=== PATIENT | male | born 1940 | race Caucasian/White ===

== ENCOUNTER 2021-08-28 15:55 | Day surgery (SDC) | payer MEDICARE ==
[~2021-08-28] VITALS: Ht 182.9 cm; Wt 72.0 kg
[2021-08-28] VITALS (9 sets, daily range): BP systolic 130–160; BP diastolic 73–110; PULSE 47–81; TEMP 97.3–98.1
[~2021-08-28 15:55] MED LIST: AQUAPHOR1 OI1 TP; ATARAX 25MG25 MG/TAB PO; HYTRIN 5MG C5 MG/CAP PO; LASIX 40MG TABL40 MG PO; VIAGRA100 MG PO; ZOCOR 40MG40 MG PO
[2021-08-28] MEDS ORDERED: PRILOSEC 20MG20 MG PO (16:27)
[2021-08-28] MEDS ORDERED: LANOXIN 0.120.125 MG PO (16:27)
[2021-08-28] MEDS ORDERED: PRINZIDE 12.5 M1 TA1 PO (16:27)
[2021-08-28] MEDS ORDERED: FLOMAX 0.40.4 MG/CAP PO (16:28)
[2021-08-28] MEDS ORDERED: TOPROL XL100 MG PO (16:28)
[2021-08-28] MEDS ORDERED: LIPITOR 40MG TA40 MG PO (16:28)
[2021-08-28] MEDS ORDERED: CARDIZEM CD 18180 MG PO (16:28)
[2021-08-28] MEDS ORDERED: ELIQUIS 5MG PO (16:29)
[2021-08-28 16:35] LABS: TRICYCLIC ANTIDEPRESS URINE NEGATIVE
--- NOTE | 2021-08-28 17:07 | NUR ---
PATIENT'S SON TOOK PERSONAL BELONGINGS TO VEHICLE. PATIENT'S DENTURES STILL AT BEDSIDE.
[2021-08-28] MEDS ORDERED: PYRIDIUM 100MG100 MG PO (19:01)
[2021-08-29] VITALS (7 sets, daily range): BP systolic 86–125; BP diastolic 51–90; PULSE 55–94; TEMP 97.3–97.8
--- NOTE | 2021-08-29 07:05 | NUR ---
PT RESTING IN BED. SLEEPING THROUGH REPORT FROM DANY NGUYEN. CBI RUNNING 3000 CR.
--- NOTE | 2021-08-29 08:52 | NUR ---
PT RESTING IN BED, EATING AND DRINKING WELL. CBI RUNNING SLOW WITH CLEAR LIGHT YELLOW FLUID IN ESTRADA BAG TO DD. LUNGS COARSE, BOWEL SOUNDS PRESENT.
--- NOTE | 2021-08-29 08:58 | NUR ---
PRIME AND PULL CATHETER, BEGIN 6 BTTL.
--- NOTE | 2021-08-29 09:39 | NUR ---
casting house worker met with patient at bedside to discuss discharge planning. Patient lives at home with a friend named Michelle, but could not remember Michelle's phone number. Patient reports that he is independent with all of his ADL's and utilizes a wheelchair at home to assist with mobility. Patient have no oxygen needs at home. PCP is Nigel Joseph and he utilizes [facility] in [place] for medication with no cost difficulties. Patient is not and Nigel ([phone]) is his only child. Education provided and patient expresses his understanding of [facility] being his legal NOK and does not wish to establish a formal DPOA-HC at this time. Patient is planning on returning home once medically ready. Discharge plan: Home with son
--- NOTE | 2021-08-29 10:40 | NUR ---
Initial visit; Patient thanked Sign Out Clerk for looking in on him, visiting and Keeping him in Sign Out Clerk's prayers.
--- NOTE | 2021-08-29 15:55 | NUR ---
CALLED [facility]OUGH AND DR. BLANC LEFT UPDATE VOICE MAIL ON PT STATUS.
--- NOTE | 2021-08-29 16:27 | NUR ---
NEW ORDER RECIEVED AND PROCESSED. HOSPITALIST CONSULT COMPLETE. NOTIFIED [facility] FOR HOSPITALIST.
--- NOTE | 2021-08-29 16:38 | NUR ---
BLADDER SCANED PT AND FOUND 211 MLS IN BLADDER. PT VOIDED 30 MLS BLOODY URINE. PT REPORTS NO NEED TO VOID FELT.
--- NOTE | 2021-08-29 16:50 | NUR ---
AND HOSPITALIST IN TO SEE PT AT THIS TIME.
[2021-08-29 17:19] LABS: BASO % 0.1 % (0.0-2.0); GRAN # 13.4 K/mm3 (1.4-6.5); GRAN % 87.7 % (42.2-75.2); HEMATOCRIT 38.2 % (42.0-52.0); HEMOGLOBIN 12.6 g/dl (13.5-18.0); LYMPH # 0.9 K/mm3 (1.2-3.4); LYMPH % 5.8 % (20.0-51.0); MEAN CELL VOLUME 92 fl (80.0-100.0); MEAN CORPUSCULAR HEMOGLOBIN 30 pg (27-31); MEAN CORPUSCULAR HGB CONC 33 g/dl (33.0-37.0); MEAN PLATELET VOLUME 9.9 fl (7.4-10.4); MONO # 0.9 K/mm3 (0.1-0.6); MONO % 5.6 % (1.7-9.3); PLATELET COUNT 254 K/mm3 (130-400); RED BLOOD COUNT 4.16 M/mm3 (4.20-5.60); REDCELL DISTRIBUTION WIDTH-CV 13.7 % (11.5-14.5)
[2021-08-29 17:34] LABS: ALBUMIN 2.8 gm/dL (3.4-4.8); BILIRUBIN,TOTAL 0.7 mg/dL (0.2-1.2); CALCIUM 7.9 mg/dL (8.4-10.2); CREATININE, serum 1.61 mg/dL (0.72-1.25); POTASSIUM 4.3 mmol/L (3.5-4.5); TOTAL PROTEIN 5.8 gm/dL (6.2-8.1)
--- NOTE | 2021-08-29 18:27 | NUR ---
pt resting in bed. Iv topump per orders.
--- NOTE | 2021-08-29 20:15 | NUR ---
PT ATTEMPTED TO VOID. UNABLE TO. BLADDER SCANNED WITH 242 RESIDUAL. PT IS NOT UNCOMFORTABLE. ENC TO DRINK MORE H20.
--- NOTE | 2021-08-29 21:44 | NUR ---
PT STILL HAS NO URGE TO VOID. AGAIN ENC PO FLUIDS.
--- NOTE | 2021-08-29 22:25 | NUR ---
PT NOT DRINKING WELL. NOTIFIED JOLENE AREVALO RE: NO UO SINCE 1699 BLADDER SCAN AND PT NOT DRINKING. SEE NEW ORDER FOR IV BOLUS.
--- NOTE | 2021-08-29 22:30 | NUR ---
STARTED NS 1000CC BOLUS.
--- NOTE | 2021-08-29 23:10 | NUR ---
ATTEMPTED TO VOID. UNABLE TO AT THIS TIME. BOLUS NS STILL INFUSING.
--- NOTE | 2021-08-30 01:43 | NUR ---
PT STILL UNABLE TO VOID. BLADDER SCAN READ 363. PT NOT UNCOMFORTABLE. PT AGITATED. HE WANTS TO WAIT TIL MORNING TO DO ANYMORE. WANTS TO BE LEFT ALONE. EXPLAINED RATIONALE. STILL ADAMENT ABOUT BEING LEFT ALONE.
--- NOTE | 2021-08-30 02:46 | NUR ---
VOIDED 40CC OF VERY DARK USHA URINE. NO BLOOD CLOTS.
[2021-08-30 03:19] VITALS: BP 111/50; PULSE 115; TEMP 97.6
--- NOTE | 2021-08-30 04:45 | NUR ---
NOTIFIED BY TELEMETRY THAT PT WAS HAVING 3 SECOND PAUSES. NOTIFIED RT FOR EKG.
--- NOTE | 2021-08-30 05:15 | NUR ---
NOTIFIED DR HERNANDEZ OF 3 SECOND PAUSES ON TELEMETRY. EKG OBTAINED. CONTINUE TO WATCH.
--- NOTE | 2021-08-30 05:23 | NUR ---
NOTIFIED DR JONES REGARDING URINARY RETENTION. SEE ORDER.
--- NOTE | 2021-08-30 05:27 | NUR ---
PLACED 18FR FOELY WITH IMMEDIATE RETURN OF DARK USHA SL DILUTED URINE. NO BLOOD CLOTS.
[2021-08-30 06:33] LABS: BASO % 0.2 % (0.0-2.0); GRAN % 88.7 % (42.2-75.2); HEMOGLOBIN 11.9 g/dl (13.5-18.0); LYMPH # 0.8 K/mm3 (1.2-3.4); LYMPH % 4.2 % (20.0-51.0); MEAN CELL VOLUME 92 fl (80.0-100.0); MEAN CORPUSCULAR HEMOGLOBIN 30 pg (27-31); MEAN CORPUSCULAR HGB CONC 33 g/dl (33.0-37.0); MEAN PLATELET VOLUME 10.4 fl (7.4-10.4); MONO # 1.1 K/mm3 (0.1-0.6); MONO % 5.5 % (1.7-9.3); PLATELET COUNT 261 K/mm3 (130-400); RED BLOOD COUNT 3.93 M/mm3 (4.20-5.60); REDCELL DISTRIBUTION WIDTH-CV 13.7 % (11.5-14.5)
--- NOTE | 2021-08-30 06:38 | NUR ---
PT RESTING AT THHIS TIME. TOTAL UO IS 600CC SINCE ESTRADA INSERTED.
[2021-08-30 06:50] LABS: CALCIUM 7.6 mg/dL (8.4-10.2); CREATININE, serum 1.4 mg/dL (0.72-1.25); POTASSIUM 4.2 mmol/L (3.5-4.5)
[2021-08-30 07:41] VITALS: BP 136/82; PULSE 64; TEMP 97.2
--- NOTE | 2021-08-30 09:22 | NUR ---
Follow-up visit; Patient thanked for stopping and stated he is doing well.
[2021-08-30 11:15] VITALS: BP 112/69; PULSE 81; TEMP 97.6
--- NOTE | 2021-08-30 11:15 | NUR ---
PATIENT'S IV SITE GOT CAUGHT ON BEDSHEETS AND PULLED. PATIENT DOES HAVE ORDERS FOR DISCHARGE LATER TODAY, SO RN TOOK IV OUT. PRESSURE DRESSING PLACED ON SITE. IV REMOVED, INTACT.
[2021-08-30 11:44] VITALS: BP 112/69; PULSE 81; TEMP 97.6
--- NOTE | 2021-08-30 13:19 | NUR ---
PATIENT'S ESTRADA CATHETER LEFT IN PLACE FOR DISCHARGE PER DR ORDER. DISCHARGE INSTRUCTIONS REVIEWED WITH PATIENT. PATIENT SIGNED DISHCARGE INSTRUCTIONS. NO FURTHER QUESTIONS AT THIS TIME.
== END 2021-08-30 13:19 | disposition home or self-care (01) ==
LOC: SDCO 15:55 → SURG 15:55 → SDCO 16:00 → SURG 20:00 → SDCO 08-30 13:19
PROVIDERS: Nurse Anesthetist, Certified Registered; Physician Assistant
DX: N40.1 Benign prostatic hyperplasia with lower urinary tract symptoms (principal); R35.1 Nocturia; R34 Anuria and oliguria; R33.9 Retention of urine, unspecified; R39.12 Poor urinary stream; R39.14 Feeling of incomplete bladder emptying; I48.91 Unspecified atrial fibrillation; R31.0 Gross hematuria; E78.5 Hyperlipidemia, unspecified; F17.210 Nicotine dependence, cigarettes, uncomplicated; J45.909 Unspecified asthma, uncomplicated; K21.9 Gastro-esophageal reflux disease without esophagitis; N17.9 Acute kidney failure, unspecified; D72.829 Elevated white blood cell count, unspecified; E78.00 Pure hypercholesterolemia, unspecified; I11.9 Hypertensive heart disease without heart failure; I08.1 Rheumatic disorders of both mitral and tricuspid valves; Z79.899 Other long term (current) drug therapy; Z79.891 Long term (current) use of opiate analgesic; Z79.01 Long term (current) use of anticoagulants
CPT/HCPCS: OP; 99231-AI; J0690; J2250; J2704; J7030; J7040; J7120